=== PATIENT | female | born 1955 | race Hispanic/Latino ===

== ENCOUNTER 2016-09-22 22:56 | Emergency (ER) | payer OTHER, MEDICARE ==
[~2016-09-22] VITALS: Ht 157.5 cm; Wt 138.2 kg
[~2016-09-22 22:56] MED LIST: AUGMENTIN875TAB PO; CIPROFLOXACN500 MG PO; FLEXERIL OR; FUROSEMIDE20 MG PO; LASIX 20 MG TAB20 MG PO; LORTAB 10 PO; LORTAB 5/3255 MG PO; LORTAB5 OR; MICRO-K10 ME1 PO; NO HOME MEDS; POT CHLORIDE10 ME1 PO; PRAVASTATIN SOD20 MG PO; PROVENTIL HFA IN; ROXICET1 TA1 OR; TRAMADOL HCL50 MG PO; ULTRAM50 M1 PO
[2016-09-23] MEDS ORDERED: PERCOCET 5/325M1 TAB PO (00:55)
[2016-09-23 01:10] VITALS: BP 144/86
== END 2016-09-23 01:10 | disposition home or self-care (01) | DRG 563 ==
LOC: ED 22:56
DX: S93.402A Sprain of unspecified ligament of left ankle, initial encounter (principal); S83.92XA Sprain of unspecified site of left knee, initial encounter; S96.912A Strain of unspecified muscle and tendon at ankle and foot level, left foot, initial encounter; X50.1XXA Overexertion from prolonged static or awkward postures, initial encounter; Y92.414 Local residential or business street as the place of occurrence of the external cause

== ENCOUNTER 2019-09-04 | Emergency (ER) | payer MEDICARE, MEDICAID ==
[~2019-09-04] MED LIST changes: +PERCOCET 5/325M1 TAB PO
[2019-09-04] MEDS ORDERED: PENICILLN VK500 M1 PO (22:14)
[2019-10-17] MEDS ORDERED: CLOTRIMAZOLE13 EX (07:41)
[2019-10-17] MEDS ORDERED: BENZONATATE200 MG PO (07:41)
[2019-10-17] MEDS ORDERED: OMEPRAZOLE DR40 MG PO (07:42)
[2019-10-17] MEDS ORDERED: OXYBUTYNIN CHLOR5 M1 PO (07:42)
[2019-10-17] MEDS ORDERED: PRAVASTATIN SOD20 MG PO (07:43)
[2020-04-09] MEDS ORDERED: NEBULIZE1 IN (13:58)
== END 2019-09-04 22:40 | disposition home or self-care (01) ==
DX: J02.9 Acute pharyngitis, unspecified (principal)

== ENCOUNTER 2020-01-08 22:03 | Emergency (ER) | payer MEDICARE, MEDICAID ==
[~2020-01-08] VITALS: Ht 157.5 cm; Wt 120.0 kg
[~2020-01-08 22:03] MED LIST changes: +BENZONATATE200 MG PO; +CLOTRIMAZOLE13 EX; +OMEPRAZOLE DR40 MG PO; +OXYBUTYNIN CHLOR5 M1 PO; +PENICILLN VK500 M1 PO
[2020-01-08 22:53] LABS: HEMOGLOBIN 13.7 g/dl (12.0-16.0); IMMATURE GRANULOCYTES 0.3 % (0.0-5.0); MEAN CELL VOLUME 83.7 fL CALC (80.0-100.0); MEAN CORPUSCULAR HGB 26.9 pG CALC (26.0-32.0); MEAN CORPUSCULAR HGB CONC 32.2 g/dL CAL (32.0-36.0); NEUT# 7.54 thou/uL (2.00-7.15); RED BLOOD COUNT 5.09 mill/uL (4.20-5.60); RED CELL DISTRI WIDTH 14.2 % (11.5-15.5)
[2020-01-08 22:54] LABS: HEMATOCRIT 42.6 % (37.0-47.0)
[2020-01-08 23:05] LABS: BILIRUBIN, TOTAL 0.7 mg/dL (0.0-1.4); CREATININE 1.2 mg/dL (0.5-1.0); POTASSIUM 4.3 mmol/l (3.5-5.1)
[2020-01-08 23:09] LABS: ALBUMIN 4.7 g/dL (3.2-5.0); TOTAL PROTEIN 8.8 g/dL (6.3-8.2)
[2020-01-08 23:12] LABS: URINE BILIRUBIN - DIPSTICK NEGATIVE (NEGATIVE); URINE BLOOD DIPSTICK LARGE (NEGATIVE); URINE GLUCOSE - DIPSTICK NEGATIVE (NEGATIVE); URINE KETONE NEGATIVE (NEGATIVE); URINE NITRITE - DIPSTICK NEGATIVE (Negative); URINE PH 5.5 (4.5-8.0); URINE PROTEIN - DIPSTICK 30 mg/dL (NEG-TRACE); URINE SPECIFIC GRAVITY >=1.030; URINE UROBILINOGEN - DIPSTICK 0.2 E.U./dL (0.2)
[2020-01-08 23:25] LABS: URINE LEUK ESTERASE NEGATIVE (NEGATIVE)
[2020-01-08 23:26] LABS: URINE COLOR AMBER
[2020-01-08 23:29] LABS: URINE RBC >100 RBC/hpf (0-5)
[2020-01-08 23:30] LABS: URINE EPITHELIAL CELLS FEW EPI/hpf (0-FEW)
[2020-01-08 23:31] LABS: URINE BACTERIA MODERATE hpf
[2020-01-09 01:11] VITALS: BP 151/59
[2020-04-09] MEDS ORDERED: NEBULIZE1 IN (13:58)
== END 2020-01-09 01:19 | disposition home or self-care (01) ==
LOC: ED 22:03
PROVIDERS: Emergency Medicine
DX: R10.32 Left lower quadrant pain (principal); N95.0 Postmenopausal bleeding; D72.829 Elevated white blood cell count, unspecified; F17.210 Nicotine dependence, cigarettes, uncomplicated
CPT/HCPCS: Q9967

== ENCOUNTER 2020-01-31 14:12 | Inpatient (IN) | payer MEDICARE, MEDICAID ==
[~2020-01-31] VITALS: Ht 157.5 cm; Wt 142.6 kg
--- NOTE | 2020-01-31 15:22 | NUR ---
PT STATES THAT SHE HAS BEEN HAVING S/S SINCE LIKE A WEEK AGO OF PROD COUGH, SOB, NAUSEA W/O VOMIT, AND DIARRHEA ONCE A DAY SINCE. CHILLS AND INTERM FEVER. PT IS CURRENTLY AT 99.9 F. DENIES CHEST PAIN OR ANY OTHER COMPLAINTS. WILL CONTINUE TO MONITOR.
[2020-01-31 15:25] LABS: HEMATOCRIT 39.3 % (37.0-47.0); HEMOGLOBIN 12.6 g/dl (12.0-16.0); IMMATURE GRANULOCYTES 0.3 % (0.0-5.0); MEAN CELL VOLUME 82.6 fL CALC (80.0-100.0); MEAN CORPUSCULAR HGB 26.5 pG CALC (26.0-32.0); MEAN CORPUSCULAR HGB CONC 32.1 g/dL CAL (32.0-36.0); NEUT# 3.48 thou/uL (2.00-7.15); RED BLOOD COUNT 4.76 mill/uL (4.20-5.60)
[2020-01-31 15:53] LABS: ALBUMIN 3.7 g/dL (3.2-5.0); BILIRUBIN, TOTAL 0.6 mg/dL (0.0-1.4); CREATININE 1.2 mg/dL (0.5-1.0); POTASSIUM 3.4 mmol/l (3.5-5.1); TOTAL PROTEIN 7.3 g/dL (6.3-8.2)
[2020-01-31 16:26] LABS: URINE BILIRUBIN - DIPSTICK NEGATIVE (NEGATIVE); URINE BLOOD DIPSTICK MODERATE (NEGATIVE); URINE COLOR YELLOW; URINE GLUCOSE - DIPSTICK NEGATIVE (NEGATIVE); URINE KETONE TRACE mg/dL (NEGATIVE); URINE LEUK ESTERASE NEGATIVE (NEGATIVE); URINE NITRITE - DIPSTICK NEGATIVE (Negative); URINE PH 5.5 (4.5-8.0); URINE PROTEIN - DIPSTICK >=300 mg/dL (NEG-TRACE); URINE SPECIFIC GRAVITY >=1.030; URINE UROBILINOGEN - DIPSTICK 0.2 E.U./dL (0.2)
[2020-01-31 16:28] LABS: URINE FINE GRAN CAST RARE lpf; URINE SQUAMOUS EPITHELIAL CELL FEW EPI/hpf (0-FEW); URINE WBC 0-2 WBC/hpf (0-5)
--- NOTE | 2020-01-31 16:30 | NUR ---
PT DISCONNECTED FOR RADIOLOGY, DENIES ANY NEEDS AT THIS TIME
[2020-01-31 16:44] LABS: C-REACTIVE PROTEIN 13.8 mg/dL (0-0.9)
--- NOTE | 2020-01-31 17:30 | NUR ---
PT STATES THAT HEADACHE HAS RESOLVED AND RESULTS TO TREATMENTS DISCUSSED. PT VERBALIZED UNDERSTANDING. SPO2 CONTINUES AT 95%. FLUIDS AND ANTIBIOTICS CONTINUE TO INFUSE INTO PATENT IV WITHOUT SIDE EFFECTS OR COMPLICATIONS
--- NOTE | 2020-01-31 18:30 | NUR ---
PT NOTIFIED OF PENDING ADMISSION AND WAIT TIME. SHE VERBALIZED UNDERSTANDING. CALL LIGHT WITHIN REACH
--- NOTE | 2020-01-31 18:59 | NUR ---
GAVE REPORT TO BETTY
--- NOTE | 2020-01-31 19:12 | NUR ---
PT TRANSPORTED TO [facility] STABLE AND IN NO DISTRESS BY W/C. CARE ASSUMED TO BETTY. Admission Note Report Given to: Transported by: X Wheelchair Stretcher Transported with: X Nurse Transporter X Patent IV O2 X [employer] Location: ICU X MS2
[2020-01-31 19:48] VITALS: BP 141/79
[2020-02-01] VITALS (7 sets, daily range): BP systolic 133–169; BP diastolic 63–84
--- NOTE | 2020-02-01 03:31 | NUR ---
PT WAS ADMITTED TO UNIT AND TRANSFERRED VIA WHEELCHAIR. PT IS ALERT AND ORIENTED AND ABLE TO VOICE NEEDS. AMBULATORY WITH NO ASSIST NEEDED.PT DENIES RESPIRATORY DISTRESS. PT DENIES COUGH. LUNG SOUNDS ARE CLEAR IN UPPER LOBES AND DIMINISHED IN LOWER LOBES. ABDOMEN IS SOFT ANF NON TENDER. CONTINENT OF B/B. COMPLAINED OF NAUSEA AND WAS GIVEN ZOFRAN IV AND TYLENOL FOR HEADACHE. DENIES PAIN OR DISCOMFORT. WILL CONTINUE TO OBSERVE
[2020-02-01 05:39] LABS: HEMATOCRIT 34.4 % (37.0-47.0); HEMOGLOBIN 11.1 g/dl (12.0-16.0); IMMATURE GRANULOCYTES 0.3 % (0.0-5.0); MEAN CELL VOLUME 82.1 fL CALC (80.0-100.0); MEAN CORPUSCULAR HGB 26.5 pG CALC (26.0-32.0); MEAN CORPUSCULAR HGB CONC 32.3 g/dL CAL (32.0-36.0); NEUT# 4.05 thou/uL (2.00-7.15); RED BLOOD COUNT 4.19 mill/uL (4.20-5.60)
[2020-02-01 05:55] LABS: CREATININE 1.2 mg/dL (0.5-1.0); POTASSIUM 3.3 mmol/l (3.5-5.1)
--- NOTE | 2020-02-01 06:10 | NUR ---
PT IN BED WITH EYES CLOSED. MEDICATED WITH ZOFRAN FOR NAUSEA AND EFFECTIVE. CONTINENT OF B/B AND AMBULATES TO TOILET WITH NO ASSIST NEEDED. DENIES RESPIRATORY DISTRESS. CALL LIGHT WITHIN REAH AND BD IN LOWEST POSITION. WILL CONTINUE TO OBSERVE.
--- NOTE | 2020-02-01 07:50 | NUR ---
ASSESSMENT IS COMPLETED: IV SITE IS FREE FROM REDNESS OR EDEMA. HR IS REG,PULSES ARE STRONG X4, ABD IS SOFT WITH ACTIVE BS. BREATH SOUNDS ARE CLEAR BILATERALLY, NO C/O SOB. TELE MONITOR IN PLACE. CONTINUE TO OSBERVE AND MONITOR./
--- NOTE | 2020-02-01 12:45 | NUR ---
PT IS RELAXING IN BED C/O FEELING COLD. TEMP WAS CHECKED IT WAS 98.5. ASKED FOR ANOTHER BLANKET. CONTINUE TO OSBERVE AND MONITOR.
--- NOTE | 2020-02-01 16:26 | NUR ---
PT TEMP RECHECKED IT WAS 100.3 DUE TO 2 BLANKETS. PT REFUSING TO TAKE THEM OFF. IV SITE IS FREE FROM REDNESS OR EDEMA.
--- NOTE | 2020-02-01 20:15 | NUR ---
PT MEDICATED W/TYLENOL FOR TEMP 103.1 BLANKETS REMOVED X1 LEAVING PT W/SHEET FOR COMFORT, SHE WAS NOT WANTING THE BLANKET REMOVED. ICEPACKS PLACED X4. WILL REASSESS FOR RESPONSE TO TYLENOL. PT REPORTS ATTEMPTING TO GO TO SLEEP, C/O TV BEING TOO SMALL TO WATCH. ROOM IS WARM, BUT AIR IS COOL IT WILL GO. PT C/O CHILLS, I EXPLAINED TO HER THAT IS THE FEVER AND SHE NEEDS TO LEAVE THE BLANKET OFF TO REDUCE HER BODY TEMP. PT VERBALIZED UNDERSTANDING. PT REFUSES ANY NEED FOR ADDITIONAL DRINK OR SNACK AT THIS TIME. CALL LIGHT AND PHONE AT SIDE.
--- NOTE | 2020-02-01 21:15 | NUR ---
PT TEMP RECHECK ASSESSED @99.3, BLANKETS AND SHEET ARE REMOVED PER PT AND SHE C/O FEELING HOT NOW, NOT CHILLED. ROOM IS WARM ALSO. ICEPACKS REMOVED FOR PT COMFORT AND PT DENIES ANY OTHER NEEDS.
[2020-02-02] VITALS (8 sets, daily range): BP systolic 127–170; BP diastolic 59–80
--- NOTE | 2020-02-02 03:55 | NUR ---
PT MEDICATED W/TYLENOL FOR TEMP OF 100.1 PT REPORTS MILD TEJADA ALSO AT THIS TIME. DENIES ANY OTHER NEEDS.
--- NOTE | 2020-02-02 08:05 | NUR ---
ASSESSMENT IS COMPLTED: IV SITE IS FREE FROM REDNESS OR EDEMA. HR IS REG,PULSES ARE STRONG X4, ABD IS SOFT WITH ACTIVE BS. BREATH SOUNDS ARE CLEAR BILATERALLY,NO C/O SOB, TELE MONITOR IN PLACE. CONTINUE TO OSBERVE AND MONITOR.
--- NOTE | 2020-02-02 12:45 | NUR ---
PT IS RELAXCING IN BED WITH NO DISTRESS NOTED IV SITE IS FREE FROM REDNESS OR EDEMA. CONTINUE TO OSBERVE AND MONITOR
--- NOTE | 2020-02-02 16:45 | NUR ---
PT CONTINUES TO RELAX WITH NO DISTRSS NOTED. NEW IV SITE WAS STARTED IN LAC WITH # 20 THE HAND IV WAS STARTING TO HURT. PT TOLERATED WELL.
[2020-02-03 03:50] VITALS: BP 156/82
--- NOTE | 2020-02-03 04:45 | NUR ---
BLOOD DRAWN FOR MORNING LABS, PT TOLERATED WELL. DENIES ANY OTHER NEEDS. PT LEFT DRINKING A FRESH APPLE JUICE W/LIGHTS ON LOW. CALL LIGHT W/IN REACH.
[2020-02-03 06:07] LABS: HEMATOCRIT 33.3 % (37.0-47.0); HEMOGLOBIN 10.5 g/dl (12.0-16.0); IMMATURE GRANULOCYTES 0.2 % (0.0-5.0); MEAN CORPUSCULAR HGB 25.9 pG CALC (26.0-32.0); MEAN CORPUSCULAR HGB CONC 31.5 g/dL CAL (32.0-36.0); NEUT# 2.39 thou/uL (2.00-7.15); RED BLOOD COUNT 4.06 mill/uL (4.20-5.60); RED CELL DISTRI WIDTH 13.9 % (11.5-15.5)
[2020-02-03 06:19] LABS: BILIRUBIN, TOTAL 0.4 mg/dL (0.0-1.4); CREATININE 1.2 mg/dL (0.5-1.0); POTASSIUM 3.6 mmol/l (3.5-5.1)
[2020-02-03 06:21] LABS: ALBUMIN 2.6 g/dL (3.2-5.0); TOTAL PROTEIN 5.2 g/dL (6.3-8.2)
[2020-02-03 06:40] LABS: C-REACTIVE PROTEIN 12.2 mg/dL (0-0.9)
[2020-02-03 09:13] VITALS: BP 167/75
--- NOTE | 2020-02-03 09:13 | NUR ---
RECIEVED REPORT FROM ANGEL HUNTER. PT RESTING IN LOW FOWLERS POSITION UPON ENTERING ROOM. INTRODUED SELF TO PT AND DISCUSSED POC. PT IS A/OX3 AND AMBULATORY. ASSESSMENT AND VITALS COMPLETED AT THIS TIME. BP 167/75, HR 72, O2 93% ON ROOM AIR. RESPIRATIONS ARE EVEN AND UNALBORED WITH NO SIGNS OF DISTRESS. LUNG SOUNDS ARE CLEAR. HEART RHYTHM IS NORMAL WITH TELE IN PLACE. BOWEL SOUNDS ARE ACTIVE IN ALL QUADRANTS, LAST REPORTED BM 04/05/20. RADIAL AND PEDAL PULSES ARE STRONG WITH NORMAL CAPILLARY REFILL. SKIN IS WARM AND WITH TRACE EDEMA AND NO BREAKDOWN. IV FLUSHED, SITE APPEARS HEALTHY AND PATENT. PT COMPLAINS OF 6/10 HEAD ACHE, TYLENOL TO BE ADMINISTERED WITH MORNING MEDS. PT DENIES ANY OTHER PAINS OR DISCOMFORTS AT THIS TIME. ALL SAFETY PRECAUTIONS IN PLACE WITH CALL LIGTH IN REACH. WILL CONTINUE TO MONITOR.
[2020-02-03 11:00] VITALS: BP 166/78
--- NOTE | 2020-02-03 11:40 | NUR ---
DR. RANGEL AT BEDSIDE DISCUSSING POC
--- NOTE | 2020-02-03 11:53 | NUR ---
REASSSESSMENT O FPAIN AT THIS TIME. PT DENIES ANY PAIN. RESPIRATIONS ARE EVEN AND UNLABORED. PT ON BEDSIDE EATING LUNCH. ALL SFATEY PRECAUTIONS IN PLACE WITH CALL LIGHT IN REACH. WILL CONTINUE TO MONITOR
--- NOTE | 2020-02-03 15:27 | NUR ---
PT RESTING IN HIGH FOWLERS POSITION UPON ENTERING ROOM. RESPIRATIONS ARE EVEN AND UNLABORED WITH NO SIGNS OF DISTRESS. BELONGINGS THAT FAMILY BROUGHT TO PT GIVEN TO PT AT THIS TIME. PT DENIES ANY PAIN OR DISCOMFORTS AT THIS TIME. ALL SAFTEY PRECAUTIONS IN PLACE. WILL CONTINUE TO MONITOR.
[2020-02-03 16:15] VITALS: BP 155/67
[2020-02-03 19:38] VITALS: BP 154/91
--- NOTE | 2020-02-03 21:21 | NUR ---
PT RESTING IN BED ALERT AND ORIENTED. RESPIRATIONS EVEN AND UNLABORED ON RA. LUNGS SOUND DIMINISHED. PEDAL PULSES STRONG. PT DENIES ANY PAIN OR DISCOMFORT AT THIS TIME. SAFETY PRECAUTIONS IN PLACE. WILL CONTINUE TO MONITOR.
[2020-02-04] VITALS (7 sets, daily range): BP systolic 144–160; BP diastolic 60–78
--- NOTE | 2020-02-04 00:15 | NUR ---
PT RESTING IN BED, NO S/S OF DISTRESS AT THIS TIME. SAFETY PRECAUTIONS IN PLACE. WILL CONTINUE TO MONITOR.
--- NOTE | 2020-02-04 04:20 | NUR ---
PT RESTING IN BED, NO S/S OF DISTRESS AT THIS TIME. SAFETY PRECAUTIONS IN PLACE. WILL CONTINUE TO MONITOR.
--- NOTE | 2020-02-04 09:00 | NUR ---
RECIEVED REPORT FROM ANGEL VIRAMONTES. PT RESTING IN SEMI FOWLERS POSITION ON PHONE WHEN ENTERING ROOM. INTRODUCED SELF TO PT AND DISCUSSED POC. PT IS A/OX3. ASSESSMENT AND VITALS COMPLETED. BP 158/60, HR 70, 02 94% ON ROOM AIR. RESPIRATIONS ARE EVEN AND UNLABORED WITH NO SIGNS OF DISTRESS. LUNG SOUNDS JOEY DIMINISHED, PT DENIES ANY SOB. HEART RHYTHM IS NORMAL, TELE IN PLACE.BOWEL SOUNDS ARE ACTIVE IN ALL QUADRANTS, LAST REPORTED BM 02/03/20.#20G LAC FLUSHED, SITE APPEARS HEALTHY AND PATENT. RADIAL AND PEDAL PULSES ARE BOTH STRING WITH NORMAL CAPILLARY REFILL. SKIN IS WARM AND DRY WITH TRACE EDEMA.250ML OF CLEAR YELLOW URINE EMPTIED FROM HAT. PT DENIES ANY PAIN OR DISCOMFORTS AT THIS TIME. ALL SAFETY AND ISOLATION PRECATUIONS IN PLACE WITH CALL LIGHT IN REACH.WILL CONTINUE TO MONITOR
--- NOTE | 2020-02-04 11:40 | NUR ---
DORON ALVARENGARP AT BEDSIDE DISCUSSING POC WITH PT
--- NOTE | 2020-02-04 12:00 | NUR ---
PT RESTING IN SEMI FOWLERS POSITION ON PHONE. RESPIRATIONS ARE EVEN AND UNLABORED WITH NO SIGNS OF DISTRESS.TELE IN PLACE. PT DENIES ANY PAIN OR DISCOMFORTS AT THIS TIME. ALL SAFETY AND ISOLATION PRECAUTIONS IN PLACE. WILL CONTINUE TO MONITOR
--- NOTE | 2020-02-04 16:35 | NUR ---
PT RESTING IN SEMI FOWLERS POSITION WATCHING TV. RESPIRATIONS ARE EVEN AND UNLABORED WITH NO SIGNS OF DISTRESS. PT DENIES ANY PAIN OR DISCOMFORTS AT THIS TIME. ALL SAFETY AND ISOLATION PRECAUTIONS IN PLACE WITH CALL LIGHT IN REACH. WILL CONTINUE TO MONITOR
--- NOTE | 2020-02-04 21:35 | NUR ---
PT RESTING IN BED, ALERT AND ORIENTED. RESPIRATIONS EVEN AND UNLABORED ON RA. LUNGS SOUND IMINISHED. PEDAL PULSES ARE STRONG. PT DENIES ANY PAIN OR DISCOMFORT AT THIS TIME. #20 LAC PATENT AND APPEARS HEALTHY DATED 01/28/20, PT EDUCATED ON IV SITE EXPIRATION, PT AGREED TO ALLOW NURSE TO START A NEW IV. #22 LFA STARTED, PT TOLERATED WELL. #20 LAC REOVED. PT PROVIDED WITH ICE WATER, ORANGE JUICE AND A TURKEY SANDWHICH PER REQUEST. TELE IN PLACE. CALL WEBB WITHIN REACH. WILL CONTINUE TO MONITOR.
--- NOTE | 2020-02-05 00:52 | NUR ---
PT RESTING IN BED. RESPIRATIONS EVEN AND UNLABOED ON RA. TELE IN PLACE. CALL WEBB WITHIN REACH. WILL CONTINUE TO MONITOR.
[2020-02-05 04:10] VITALS: BP 155/72
--- NOTE | 2020-02-05 04:10 | NUR ---
PT RESTING IN BED. RESPIRATIONS EVEN AND UNLABROED ON RA. NO S/S OF DISTRESS AT THIS TIME. LABS DRAWN AND VS OBTAINED. SAFETY PRECAUTIONS IN PLACE. WILL CONTINUE TO MONITOR.
[2020-02-05 06:22] LABS: BASO% 0 % (0-3); EOS% 0 % (0-8); HEMATOCRIT 34.9 % (37.0-47.0); HEMOGLOBIN 11.2 g/dl (12.0-16.0); IMMATURE GRANULOCYTES 2.1 % (0.0-5.0); LYMPH% 30 % (15-41); MEAN CELL VOLUME 81.7 fL CALC (80.0-100.0); MEAN CORPUSCULAR HGB 26.2 pG CALC (26.0-32.0); MEAN CORPUSCULAR HGB CONC 32.1 g/dL CAL (32.0-36.0); MONO% 8 % (2-13); NEUT# 6.52 thou/uL (2.00-7.15); NEUT% 61 % (42-76); RED BLOOD COUNT 4.27 mill/uL (4.20-5.60); RED CELL DISTRI WIDTH 13.8 % (11.5-15.5)
[2020-02-05 06:39] LABS: ALBUMIN 2.9 g/dL (3.2-5.0); BILIRUBIN, TOTAL 0.4 mg/dL (0.0-1.4); C-REACTIVE PROTEIN 2.9 mg/dL (0-0.9); CREATININE 1.2 mg/dL (0.5-1.0); TOTAL PROTEIN 5.7 g/dL (6.3-8.2)
[2020-02-05 06:41] LABS: POTASSIUM 4.4 mmol/l (3.5-5.1)
[2020-02-05 06:59] LABS: PLATELET COUNT 491 thou/uL (130-400)
--- NOTE | 2020-02-05 07:00 | NUR ---
SHIFT CHANGE REPORT, PT AWAKE ALERT AND ORIENTED SITTING UP AT BEDSIDE, C/O HEADACHE, CONCERN ADDRESSED, TELE MONITOR IN PLACE, CALL WEBB IN REACH.
[2020-02-05 08:51] VITALS: BP 177/73
[2020-02-05 10:06] VITALS: BP 162/75
[2020-02-05 11:21] VITALS: BP 138/64
--- NOTE | 2020-02-05 12:00 | NUR ---
RESTING IN BED, SEWING MACHINE BOBBIN WINDER ROUNDED AND DISCUSSED PLAN OF CARE, PT STATED UNDERSTANDING.
[2020-02-05 15:13] VITALS: BP 148/75
--- NOTE | 2020-02-05 16:00 | NUR ---
RELAXING IN BED, ALL NEEDS ADDRESSED.
[2020-02-05 19:51] VITALS: BP 148/76
--- NOTE | 2020-02-05 20:41 | NUR ---
PT RESTING IN BED, ALERT AND ORIENTED. RESPIRATIONS EVEN AND UNLABORED, DENIES ANY SOB. LUNGS SOUND DIMINIHSED. PEDAL PULSES ARE STRONG. #22 LFA APPEARS HEALTHY AND PATENT. PT DENIES ANY PAIN OR DISCOMFORT AT THIS TIME. PT PROVIDED WITH ICE WATER, SANDWICH, AND ICE CREAM PER REQUEST. TELE IN PLACE. CALL WEBB IN REACH. WILL CONTINUE TO MONITOR.
--- NOTE | 2020-02-06 00:15 | NUR ---
PT RESTING IN BED. NO S/S OF DISTRES AT THIS TIME. SAFETY PRECAUTIONS IN PLACE. WILL CONTINUE TO MONITOR.
--- NOTE | 2020-02-06 04:00 | NUR ---
PT RESTING IN BED, NO S/S OF DISTRESS AT THIS TIME
[2020-02-06 05:28] VITALS: BP 163/78
--- NOTE | 2020-02-06 08:10 | NUR ---
REPORT RECEIVED FROM ANGEL VIRAMONTES;PT APPEARS TO BE SLEEPING IN SEMI FOWLERS POSITION;RESPIRATIONS EVEN AND UNLABORED ON RA;TELE MONITORING IN PLACE;NO S/S OF DISTRESS NOTED;SAFETY PRECAUTIONS IN PLACE WITH BED IN LOWEST POSITION AND CALL LIGHT IN REACH;WILL CONTINUE TO MONITOR
[2020-02-06 08:50] VITALS: BP 155/68
--- NOTE | 2020-02-06 08:50 | NUR ---
PT RESTING IN SEMI FOWLERS POSITION,A&O X3;VS OBTAINED AND ASSESSMENT COMPLETED;PT DENIES ANY CURRENT PAIN OR DISCOMFORTS,PAIN SCALE AND REPORTING EDUCATED;RESPIRATIONS EVEN AND UNLABORED ON RA, PT DENIES ANY SOB OR COUGH;ABDOMEN DISTENDED/SOFT ON PALPATION AND ACTIVE IN ALL 4 QUADRANTS;STRONG PEDAL PULSES;SKIN INTACT;TELE MONITORING IN PLACE;#22G TO LEFT FOREARM FLUSHED AND PATENT,SITE APPEARS HEALTHY;PT DENIES ANY ADDITIONAL NEEDS AT THIS TIME AND IS ENCOURAGED TO CALL FOR ASSISTANCE IF NEEDED;FALL PRECAUTIONS IN PLACE WITH CALL LIGHT IN REACH;WILL CONTINUE TO MONITOR
[2020-02-06 11:00] VITALS: BP 154/79
--- NOTE | 2020-02-06 11:50 | NUR ---
PT BEING ASSISTED WITH A SHOWER BY JO-ANN OLIVEIRA;RESPIRATIONS EVEN AND UNLABORED ON RA;PT DENIES ANY CURRENT PAIN OR NEEDS;IV SITE PATENT;TELE MONITORING TO BE PLACED BACK ON PT AFTER SHOWER;ASSESSMENT REMAINS UNCHANGED;PT REMAINS UNDER AIR/CONTACT PRECAUTIONS R/T COVID 19 VIRUS;ALL SAFETY PRECAUTIONS REMAIN IN PLACE WITH BED IN THE LOWEST POSITION AND CALL LIGHT IN REACH;WILL CONTINUE TO MONITOR
--- NOTE | 2020-02-06 12:42 | NUR ---
CONSENT OBTAINED AT THIS TIME TO OBTAIN RECORDS FROM [facility].
--- NOTE | 2020-02-06 15:50 | NUR ---
PT RESTING IN SEMI FOWLERS POSITION;RESPIRATIONS EVEN AND UNLABORED ON RA;PT DENIES ANY CURRENT PAIN OR DISCOMFORTS;TELE MONITORING IN PLACE;IV SITE PATENT AND ABX HUNG AT THIS TIME;PT DENIES ANY ADDITIONAL NEEDS AND IS ENCOURAGED TO CALL FOR ASSISTANCE IF NEEDED;FALL PRECAUTIONS IN PLACE WITH CALL LIGHT IN REACH;WILL CONTINUE TO MONITOR
[2020-02-06 15:52] VITALS: BP 159/75
[2020-02-06 19:00] VITALS: BP 150/74
--- NOTE | 2020-02-06 20:50 | NUR ---
ASSESSMENT COMPLETED AT THIS TIME AND PM MEDICATIONS ADMINISTERED. PT REPORTS FEELING SOMEWHAT BETTER TODAY. LUNG SOUNDS ARE DIMINISHED. PT MEDICATED FOR HEADACHE 4/10 ON PAIN SCALE. ICE AND ICEWATER REPLENISHED AT THIS TIME. CALL LIGHT W/IN REACH. DENIES ANY OTHER NEEDS.
[2020-02-07] VITALS: BP 185/88
[2020-02-07 00:53] VITALS: BP 158/84
--- NOTE | 2020-02-07 00:55 | NUR ---
V/S OBTAINED. PT WAS SLEEPING, DENIES ANY NEEDS. CALL LIGHT W/IN REACH
[2020-02-07 04:10] VITALS: BP 159/76
--- NOTE | 2020-02-07 05:15 | NUR ---
ENTERED ROOM TO OBTAIN BLOOD FOR LABS AND PT C/O TENDERNESS TO IV SITE AND ASKED IF WE CAN REPLACE IT. NEW IV SITE OBTAINED AT THIS TIME ALONG W/BLOOD FOR LAB DRAWS. PT TOLERATED WELL. BED LEFT IN LOWEST POSITION AND PT DENIED ANY OTHER NEEDS AT THIS TIME. ENCOURAGED PT TO CALL NEEDS ARISE.
[2020-02-07 06:15] LABS: HEMATOCRIT 35.6 % (37.0-47.0); HEMOGLOBIN 11.4 g/dl (12.0-16.0); IMMATURE GRANULOCYTES 4.9 % (0.0-5.0); MEAN CELL VOLUME 81.8 fL CALC (80.0-100.0); MEAN CORPUSCULAR HGB 26.2 pG CALC (26.0-32.0); NEUT# 7.84 thou/uL (2.00-7.15); RED BLOOD COUNT 4.35 mill/uL (4.20-5.60)
[2020-02-07 06:43] LABS: ALBUMIN 3.1 g/dL (3.2-5.0); ALKALINE PHOSPHATASE 150 u/l (38-126); ANION GAP 10 (6-22 (CALC)); BILIRUBIN, TOTAL 0.3 mg/dL (0.0-1.4); BUN 32 mg/dL (8-23); BUN/CREATININE RATIO 30 (12-20 (CALC)); C-REACTIVE PROTEIN 1.2 mg/dL (0-0.9); CARBON DIOXIDE 23 mmol/l (22-30); CHLORIDE 105 mmol/l (95-108); CREATININE 1.1 mg/dL (0.5-1.0); GFR 50 ML/MIN (>=60 (CALC)); GFR FOR AFR.AMER. > 60 ML/MIN (>=60 (CALC)); POTASSIUM 4.3 mmol/l (3.5-5.1); SGOT/AST 175 u/l (9-36); SODIUM 134 mmol/l (137-146); TOTAL PROTEIN 5.9 g/dL (6.3-8.2)
--- NOTE | 2020-02-07 07:15 | NUR ---
REPORT RECEIVED FROM ANGEL HUNTER
--- NOTE | 2020-02-07 09:03 | NUR ---
AT BEDSIDE DISCUSSING POC WITH PT.
[2020-02-07 09:08] VITALS: BP 157/78
--- NOTE | 2020-02-07 09:10 | NUR ---
PT RESTING IN SEMI FOWLES POSITION,A&O X3;VS OBTAINED AND ASSESSMENT COMPLETED;PT DENIES ANY CURRENT PAIN OR NEEDS;RESPIRATIONS EVEN AND UNLABORED ON RA,DIMINISHED LUNG SOUNDS NOTED;NON-PRODUCTIVE COUGH AT TIMES;ABDOMEN DISTENDED/SOFT ON PALPATION AND ACTIVE IN ALL 4 QUADRANTS;STRONG PEDAL PULSES;SKIN INTACT;TELE MONITORING IN PLACE;#22G TO RFA FLUSHED AND PATENT;6 MIN WALK TEST OBTAINED AT THIS TIME, PT O2 DECREASED TO 85% ON RA. ONCE REPOSITIONED INTO BED O2 QUICKLY CHRISSIE TO 92%;PT EDUCATED ON THE QUALIFICATION FOR OXYGEN BUT STATES "I DONT WANT IT, I CAN BREATH FINE ON MY OWN". PT EDUCATED ON THE IMPORTANCE OF OXYGEN THERAPY ESPECIALLY WITH COVID19; PT REPORTS THAT SHE UNDERSTOOD BUT STILL REFUSES, ANRP NOTIFIED;PT DENIES ANY ADDITIONAL NEEDS AT THIS TIME AND IS ENCOURAGED TO CALL FOR ASSISTANCE IF NEEDED;FALL PRECAUTIONS REMAIN IN PLACE WITH CALL LIGHT IN REACH;WILL CONTINUE TO MONITOR
[2020-02-07 10:54] VITALS: BP 153/82
--- NOTE | 2020-02-07 11:45 | NUR ---
PT RESTING IN SEMI FOWLERS POSITION;RESPIRATIONS EVEN AND UNLABORED ON RA;PT DENIES ANY CURRENT PAIN OR NEEDS;TELE MONITORING IN PLACE;IV SITE PATENT;ASSESSMENT REMAINS UNCHANGED AT THIS TIME;ENCOURAGED PT TO CALL FOR ASSISTANCE IF NEEDED;CALL LIGHT IN REACH;WILL CONTINUE TO MONITOR
[2020-02-07] MEDS ORDERED: DECADRON2 MG PO ×2 (14:25→19:02)
[2020-02-07] MEDS ORDERED: AMLODIPINE BESYL5 MG PO ×2 (14:25→19:02)
[2020-02-07 15:25] VITALS: BP 142/61
--- NOTE | 2020-02-07 15:35 | NUR ---
PT RESTING IN SEMI FOWLERS POSITION;RESPIRATIONS EVEN AND UNLABORED ON RA;PT DENIES ANY CURRENT PAIN OR DISCOMFORTS;TELE MONITORING REPLACED ON PT AFTER SHOWER;IV SITE PATENT AND ABX STARTED AT THIS TIME;PT EDUCATED ON HOME OXYGEN BEING DELIVERED AROUND 1730 AND VERBALIZES UNDERSTANDING;PT REPORTS SPOUSE IN UNABLE TO TRANSPORT PT UNTIL 1900 FOR DISCHARGE HOME ;PT DENIES ANY ADDITIONAL NEEDS AT THIS TIME AND IS ENCOURAGED TO CALL FOR ASSISTANCE IF NEEDED;CALL LIGHT IN REACH;WILL CONTINUE TO MONITOR
--- NOTE | 2020-02-07 17:30 | NUR ---
ALL DISCHARGE INSTRUCTIONS PROVIDED AT THIS TIME;PT EDUCATED ON RX FOR DECADRON AND NORVASC, HARD SCRIPTS PROVIDED;PT EDUCATED ON COMPLETING DOSE OF DECADRON, CONTINUE ALL HOME MEDICATIONS AND HAD NORVASC DAILY.MONITOR BLOOD PRESSURE,SELF ISOLATE FOR 14 DAYS,USE OXYGEN WITH EXERTION AND F/U WITH PCP IN 1 WEEK;HOME OXYGEN TANK PROVIDED AND PT EDUCATED ON USE, PT VERBALIZES UNDERSTANDING OF HOW TO USE HOME OXYGEN AND D/C INSTRUCTIONS;PT DENIES ANY ADDITIONAL QUESTIONS OR NEEDS;TELE MONITORING D/C AT THIS TIME;WHEELCHAIR TO BE PROVIDED FOR D/C HOME;SPOUSE TO [employer]LL [employer]ER FOR TRANSPORT HOME AROUND 1800;WILL CONTINUE TO MONITOR
--- NOTE | 2020-02-07 18:33 | NUR ---
Discharge instructions given. Patient verbalizes understanding of same. Discharged in stable condition via Wheelchair to Home with spouse. All belongings sent with pt. PT TRANSPORTED TO [facility] IN STABLE CONDITION VIA WHEELCHAIR ACCOMPANIED BY JO-ANN ALVA AND WILLI. SPOUSE TO TRANSPORT PT HOME. ALL DISCHARGE INSTRUCTIONS,HOME OXYGEN, AND RX SENT WITH PT.
--- NOTE | 2020-02-14 14:01 | NUR ---
Pneumonia discharge follow up call completed today, 02/14/20. Patient states she is doing well, improving steadily. No fever, chills, or SOB. Occassional cough, but nothing like it was previously. Pt. is trying to walk in her yard a little each day. She states she is still experiencing fatigue, but that is improving also. Discharge medications were obtained and are being taken without complication. Follow up telehealth appointment is scheduled for February 20. No needs or questions at this time. Pt. appreciates [facility] checking on her.
[2020-04-09] MEDS ORDERED: NEBULIZE1 IN (13:58)
== END 2020-02-07 18:33 | disposition home or self-care (01) | DRG 177 ==
LOC: ED 14:12 → ED-I 17:30 → ED 17:42 → MS2 17:43 → ED-I 17:43 → MS2 18:51
PROVIDERS: Emergency Medicine; Internal Medicine; Nurse Practitioner Family; ADMIT Internal Medicine; ATTEND Internal Medicine
DX: U07.1 COVID-19 (principal); J12.89 Other viral pneumonia; Z68.43 Body mass index [BMI] 50.0-59.9, adult; K92.0 Hematemesis; E78.5 Hyperlipidemia, unspecified; E66.01 Morbid (severe) obesity due to excess calories; E87.6 Hypokalemia; K21.9 Gastro-esophageal reflux disease without esophagitis; I10 Essential (primary) hypertension
CPT/HCPCS: J1650; Q9967

== ENCOUNTER 2020-04-08 14:25 | Emergency (ER) | payer MEDICARE, MEDICAID ==
[~2020-04-08] VITALS: Ht 157.5 cm; Wt 106.0 kg
[~2020-04-08 14:25] MED LIST changes: +AMLODIPINE BESYL5 MG PO; +DECADRON2 MG PO
[2020-04-08 15:16] LABS: HEMATOCRIT 32.8 % (37.0-47.0); IMMATURE GRANULOCYTES 0.2 % (0.0-5.0); MEAN CORPUSCULAR HGB 26.5 pG CALC (26.0-32.0); MEAN CORPUSCULAR HGB CONC 30.5 g/dL CAL (32.0-36.0); NEUT# 3.56 thou/uL (2.00-7.15); RED BLOOD COUNT 3.77 mill/uL (4.20-5.60)
[2020-04-08 15:32] LABS: ALKALINE PHOSPHATASE 113 u/l (38-126); ANION GAP 10 (6-22 (CALC)); BILIRUBIN, TOTAL 0.5 mg/dL (0.0-1.4); BUN 19 mg/dL (8-23); BUN/CREATININE RATIO 19 (12-20 (CALC)); CARBON DIOXIDE 23 mmol/l (22-30); CHLORIDE 108 mmol/l (95-108); GFR 56 ML/MIN (>=60 (CALC)); GFR FOR AFR.AMER. > 60 ML/MIN (>=60 (CALC)); POTASSIUM 3.8 mmol/l (3.5-5.1); SGOT/AST 23 u/l (9-36); SODIUM 138 mmol/l (137-146)
[2020-04-08 15:33] LABS: D-DIMER 1.88 mg/L (0.19-0.60)
[2020-04-08 15:50] LABS: ACT PARTIAL THROMBO TIME 22.9 SECONDS (20.0-32.5); PROTHROMBIN TIME 9.9 SECONDS (9.0-12.5)
[2020-04-08] MEDS ORDERED: VENTOLIN HFA IN ×2 (16:18)
[2020-04-08] MEDS ORDERED: ALBUTEROL SUL0.083 % IN ×2 (16:18)
[2020-04-08] MEDS ORDERED: MEDDOSEPAK PO (17:01)
[2020-04-08 17:15] VITALS: BP 153/67
[2020-04-09] MEDS ORDERED: NEBULIZE1 IN (13:58)
== END 2020-04-08 17:29 | disposition home or self-care (01) ==
LOC: ED 14:25
DX: U07.1 COVID-19 (principal); J40 Bronchitis, not specified as acute or chronic; F17.200 Nicotine dependence, unspecified, uncomplicated; R06.02 Shortness of breath; R07.9 Chest pain, unspecified; M79.89 Other specified soft tissue disorders
CPT/HCPCS: A4627; Q9967

== ENCOUNTER 2020-11-21 18:43 | Emergency (ER) | payer MEDICARE, MEDICAID ==
[~2020-11-21 18:43] MED LIST changes: +ALBUTEROL SUL0.083 % IN; +MEDDOSEPAK PO; +NEBULIZE1 IN; +VENTOLIN HFA IN
[2020-11-21] MEDS ORDERED: FUROSEMIDE20 MG PO (19:04)
[2020-11-21] MEDS ORDERED: METOPROL TAR25 MG PO (19:05)
[2020-11-21] MEDS ORDERED: SPIRONOLACTONE25 MG PO (19:06)
[2020-11-21] MEDS ORDERED: SPIRONOLACTONE50 MG PO (19:07)
[2020-11-21 19:50] LABS: IMMATURE GRANULOCYTES 0.4 % (0.0-5.0); MEAN CELL VOLUME 84.6 fL CALC (80.0-100.0); MEAN CORPUSCULAR HGB 27.1 pG CALC (26.0-32.0); NEUT# 8.03 thou/uL (2.00-7.15); RED BLOOD COUNT 4.69 mill/uL (4.20-5.60); RED CELL DISTRI WIDTH 14.6 % (11.5-15.5)
[2020-11-21 19:51] LABS: HEMATOCRIT 39.7 % (37.0-47.0); HEMOGLOBIN 12.7 g/dl (12.0-16.0)
[2020-11-21 20:09] LABS: ALBUMIN 4.4 g/dL (3.2-5.0); ALKALINE PHOSPHATASE 146 u/l (38-126); ANION GAP 12 (6-22 (CALC)); BUN 24 mg/dL (8-23); BUN/CREATININE RATIO 21 (12-20 (CALC)); CARBON DIOXIDE 26 mmol/l (22-30); CHLORIDE 103 mmol/l (95-108); CREATININE 1.1 mg/dL (0.5-1.0); GFR 50 ML/MIN (>=60 (CALC)); GFR FOR AFR.AMER. 60 ML/MIN (>=60 (CALC)); LIPASE 35 u/l (23-300); POTASSIUM 4.1 mmol/l (3.5-5.1); SGOT/AST 27 u/l (9-36); SODIUM 137 mmol/l (137-146); TOTAL PROTEIN 7.9 g/dL (6.3-8.2)
[2020-11-21 20:10] LABS: BILIRUBIN, TOTAL 0.8 mg/dL (0.0-1.4)
[2020-11-21 20:29] LABS: URINE BILIRUBIN - DIPSTICK NEGATIVE (NEGATIVE); URINE BLOOD DIPSTICK LARGE (NEGATIVE); URINE COLOR YELLOW; URINE GLUCOSE - DIPSTICK NEGATIVE (NEGATIVE); URINE KETONE NEGATIVE (NEGATIVE); URINE LEUK ESTERASE NEGATIVE (NEGATIVE); URINE NITRITE - DIPSTICK NEGATIVE (Negative); URINE PROTEIN - DIPSTICK >=300 mg/dL (NEG-TRACE); URINE SPECIFIC GRAVITY >=1.030; URINE UROBILINOGEN - DIPSTICK 0.2 E.U./dL (0.2)
[2020-11-21 20:40] LABS: URINE SQUAMOUS EPITHELIAL CELL MANY EPI/hpf (0-FEW)
[2020-11-22] MEDS ORDERED: ONDANSETRON4 MG PO (00:08)
[2020-11-22 00:25] VITALS: BP 118/56
== END 2020-11-22 00:25 | disposition home or self-care (01) ==
LOC: ED 18:43
PROVIDERS: Emergency Medicine
DX: K52.9 Noninfective gastroenteritis and colitis, unspecified (principal); I10 Essential (primary) hypertension; Z86.16 Personal history of COVID-19; Z87.891 Personal history of nicotine dependence

== ENCOUNTER 2021-02-14 20:52 | Emergency (ER) | payer MEDICARE, MEDICAID ==
[~2021-02-14] VITALS: Ht 167.6 cm; Wt 136.0 kg
[~2021-02-14 20:52] MED LIST changes: +METOPROL TAR25 MG PO; +ONDANSETRON4 MG PO; +SPIRONOLACTONE25 MG PO; +SPIRONOLACTONE50 MG PO
[2021-02-15 00:05] VITALS: BP 134/63
== END 2021-02-15 00:14 | disposition home or self-care (01) ==
LOC: ED 20:52
DX: J02.9 Acute pharyngitis, unspecified (principal); I10 Essential (primary) hypertension; Z87.891 Personal history of nicotine dependence; Z86.16 Personal history of COVID-19; Z20.822 Contact with and (suspected) exposure to COVID-19

== ENCOUNTER 2021-11-03 20:23 | Emergency (ER) | payer MEDICARE, MEDICAID ==
[~2021-11-03] VITALS: Ht 167.6 cm; Wt 136.4 kg
[2021-11-03 21:07] VITALS: BP 142/72
[2021-11-03] MEDS ORDERED: VOLTAREN75 MG PO (23:37)
[2021-11-03 23:49] VITALS: BP 142/72
== END 2021-11-03 23:49 | disposition home or self-care (01) ==
LOC: ED 20:23
DX: M17.12 Unilateral primary osteoarthritis, left knee (principal); M54.50 Low back pain, unspecified; R93.6 Abnormal findings on diagnostic imaging of limbs; E66.01 Morbid (severe) obesity due to excess calories; I10 Essential (primary) hypertension; Z87.891 Personal history of nicotine dependence; Z86.16 Personal history of COVID-19

== ENCOUNTER 2022-09-15 14:34 | Observation (INO) | payer MEDICARE, MEDICAID ==
[2022-09-15] VITALS (11 sets, daily range): BP systolic 110–155; BP diastolic 48–90
[~2022-09-15] VITALS: Ht 167.6 cm; Wt 148.3 kg
[~2022-09-15 14:34] MED LIST changes: +VOLTAREN75 MG PO
--- NOTE | 2022-09-15 14:58 | NUR ---
PATIENT AMBULATED TO ROOM WITH STEADY GAIT AND PHYSICIAN NOTIFIED OF STATUS
[2022-09-15 15:20] LABS: BASO% 0.9 % (0-3); HEMATOCRIT 35.9 % (37.0-47.0); HEMOGLOBIN 11.3 g/dl (12.0-16.0); LYMPH% 46.2 % (15-41); MEAN CELL VOLUME 86.3 fL CALC (80.0-100.0); MEAN CORPUSCULAR HGB 27.2 pG CALC (26.0-32.0); MEAN CORPUSCULAR HGB CONC 31.5 g/dL CAL (32.0-36.0); MONO% 7.2 % (2-13); NEUT# 3.76 thou/uL (2.00-7.15); NEUT% 42.7 % (42-76); RED BLOOD COUNT 4.16 mill/uL (4.20-5.60); RED CELL DISTRI WIDTH 13.7 % (11.5-15.5)
--- NOTE | 2022-09-15 15:24 | NUR ---
Reassessment of patient completed. No distress noted.
[2022-09-15 15:31] LABS: ALBUMIN 4.2 g/dL (3.2-5.0); ALKALINE PHOSPHATASE 131 u/l (38-126); ANION GAP 12 (6-22 (CALC)); BILIRUBIN, TOTAL 0.3 mg/dL (0.02-1.3); BUN 33 mg/dL (8-23); BUN/CREATININE RATIO 22 (12-20 (CALC)); CARBON DIOXIDE 21 mmol/l (22-30); CHLORIDE 109 mmol/l (95-108); CREATININE 1.5 mg/dL (0.5-1.0); GFR FOR AFR.AMER. 42 ML/MIN (>=60 (CALC)); GFR OTHER RACES 35 ML/MIN (>=60 (CALC)); POTASSIUM 4.5 mmol/l (3.5-5.1); SGOT/AST 26 u/l (9-36); SODIUM 137 mmol/l (137-146); TOTAL PROTEIN 7.7 g/dL (6.3-8.2)
--- NOTE | 2022-09-15 17:25 | NUR ---
PATIENT TO ROOM 274
--- NOTE | 2022-09-15 18:33 | NUR ---
PT ARRIVED ON UNIT @ 1722 TRANSPORTED VIA W/C BY ED STAFF AND TRANSFERRED TO BED. ALERT AND ORIENTED X 3, C/O ACHING PAIN @ 8/10 TO LEFT SHOULDER, NECK AND AND LEFT CIEST, ORIENTED TO ROOM AND CALL WEBB, TELE MONITOR IN PLACE, VS MEASURED AND RECORDED, WILL CONTINUE TO MONITOR.
--- NOTE | 2022-09-15 20:00 | NUR ---
RECEIVED REPORT FROM NURSE ANAND, PATIENT STILL COMPLAINING OF NECK PAIN UNRELIEVED WITH TYLENOL, MADE AWARE NEW ORDER GIVEN FOR TRAMADOL, FAX TO PHARMACY, PATIENT SALINE LOCK ON RT HAND PATENT FLUSHES WELL, HOOKED ON TELMETRY, NOTED EDEMA ON BILAT LOWER LEGS +1, ENCOURANGE TO ELEVATE, CALL LIGHT IN REACH.
--- NOTE | 2022-09-15 23:36 | NUR ---
PATIENT RESIING IN BED, NOT IN DISTRESS, REMAINS ON TELEMETRY, BREATHING UNLABORED, CALL LIGHT IN REACH.
--- NOTE | 2022-09-16 03:49 | NUR ---
PATIENT RESTING IN BED, EYES CLOSED, NOT IN DISTRESS, CALL LIGHT IN REACH.
[2022-09-16 03:53] VITALS: BP 129/51
--- NOTE | 2022-09-16 04:02 | NUR ---
C/O HEADACHE PS 6/10 PRN TRAMADOL GIVEN
[2022-09-16 05:26] LABS: CHOLESTEROL HDL RATIO 3.3 (<4.4 (CALC)); CREATININE 1.4 mg/dL (0.5-1.0); MAGNESIUM 2.8 mg/dL (1.6-2.3); POTASSIUM 4.9 mmol/l (3.5-5.1)
[2022-09-16 06:45] VITALS: BP 120/53
--- NOTE | 2022-09-16 08:00 | NUR ---
PT RESTING IN ROOM. STATES HEADACHE 09/05. ASSESSMENT COMPLETED. TELE MONTIOR IN PLACE. CONITNOUS MONITORING PER ED. UPDATED PT IN [facility]. PT INDICATED UNDERSTANDING. FALL/SAFTEY PRECAUTION IN PLACE. CALL LIGHT WITHIN REACH
[2022-09-16] MEDS ORDERED: TRAMADOL HCL50 MG PO (09:50)
[2022-09-16 10:03] VITALS: BP 138/70
--- NOTE | 2022-09-16 11:02 | NUR ---
Discharge instructions given. Patient verbalizes understanding of same. Discharged in stable condition via Wheelchair to Home with staff. All belongings sent with pt.
== END 2022-09-16 11:02 | disposition home or self-care (01) ==
LOC: ED 14:34 → ED-I 15:41 → ED 16:32 → MS2 16:33
PROVIDERS: Family Medicine; ADMIT Internal Medicine; ATTEND Internal Medicine
DX: R07.9 Chest pain, unspecified (principal); I10 Essential (primary) hypertension; E78.5 Hyperlipidemia, unspecified; K21.9 Gastro-esophageal reflux disease without esophagitis; E66.01 Morbid (severe) obesity due to excess calories; Z23 Encounter for immunization; Z86.16 Personal history of COVID-19; Z87.01 Personal history of pneumonia (recurrent); Z87.891 Personal history of nicotine dependence; Z90.49 Acquired absence of other specified parts of digestive tract; Z20.822 Contact with and (suspected) exposure to COVID-19
CPT/HCPCS: J1650

== ENCOUNTER 2023-03-28 16:11 | Emergency (ER) | payer MEDICARE, MEDICAID ==
[~2023-03-28] VITALS: Ht 167.6 cm; Wt 136.0 kg
[2023-03-28 16:33] VITALS: BP 163/83
[2023-03-28 16:45] VITALS: BP 155/79
[2023-03-28] MEDS ORDERED: PAXLOVID PO (16:56)
[2023-03-28 17:00] VITALS: BP 169/89
[2023-03-28 17:14] VITALS: BP 169/89
== END 2023-03-28 17:15 | disposition home or self-care (01) ==
LOC: ED 16:11
DX: U07.1 COVID-19 (principal); R05.9 Cough, unspecified; R52 Pain, unspecified; J02.9 Acute pharyngitis, unspecified; R09.89 Other specified symptoms and signs involving the circulatory and respiratory systems; I10 Essential (primary) hypertension; E66.01 Morbid (severe) obesity due to excess calories; Z87.891 Personal history of nicotine dependence

== ENCOUNTER 2023-04-30 16:42 | Emergency (ER) | payer MEDICARE, MEDICAID ==
[~2023-04-30] VITALS: Ht 167.6 cm; Wt 141.0 kg
[~2023-04-30 16:42] MED LIST changes: +PAXLOVID PO
[2023-04-30 17:14] VITALS: BP 161/75
[2023-04-30 17:31] VITALS: BP 135/71
[2023-04-30 18:00] VITALS: BP 136/68
[2023-04-30] MEDS ORDERED: ZYRTEC10 MG PO (18:25)
[2023-04-30] MEDS ORDERED: ZPAK PO (18:25)
[2023-04-30 18:31] VITALS: BP 141/69
== END 2023-04-30 18:41 | disposition home or self-care (01) ==
LOC: ED 16:42
DX: J02.9 Acute pharyngitis, unspecified (principal); I10 Essential (primary) hypertension; Z87.891 Personal history of nicotine dependence; Z86.16 Personal history of COVID-19; Z20.822 Contact with and (suspected) exposure to COVID-19

== ENCOUNTER 2024-01-27 16:16 | Emergency (ER) | payer MEDICARE, MEDICAID ==
[~2024-01-27] VITALS: Ht 167.6 cm; Wt 145.0 kg
[~2024-01-27 16:16] MED LIST changes: +ZPAK PO; +ZYRTEC10 MG PO
[2024-01-27] MEDS ORDERED: KETOROLAC TROMETHAMINE 30 MG/ML SDV IM ONE (16:30)
[2024-01-27 16:31] VITALS: BP 137/56
[2024-01-27 17:31] VITALS: BP 125/55
[2024-01-27 18:00] VITALS: BP 128/64
[2024-01-27 18:31] VITALS: BP 136/100
[2024-01-27] MEDS ORDERED: NAPROXEN500 MG PO (18:32)
[2024-01-27] MEDS ORDERED: TRAMADOL HYDROC50 M1 PO (18:32)
[2024-01-27 18:37] VITALS: BP 136/100
== END 2024-01-27 19:01 | disposition home or self-care (01) ==
LOC: ED 16:16
DX: M17.12 Unilateral primary osteoarthritis, left knee (principal); E66.01 Morbid (severe) obesity due to excess calories; I10 Essential (primary) hypertension; Z86.16 Personal history of COVID-19; Z87.891 Personal history of nicotine dependence